=== PATIENT | female | born 1950 | race Caucasian/White ===

== ENCOUNTER 2019-12-17 07:00 | Day surgery (SDC) | payer OTHER, MEDICARE, SELFPAY ==
[~2019-12-17] VITALS: Ht 170.2 cm; Wt 65.8 kg
[2019-12-17] MEDS ORDERED: SIMETHICONE 40 MG/0.6 ML ML PO ONE (07:01)
[2019-12-17] MEDS ORDERED: DIPHENHYDRAMINE INJ 50 MG/ML VIAL IV ONE (07:01)
[2019-12-17] MEDS ORDERED: fentaNYL CITRATE/PF 100 MCG/2 ML AMP IVP ONE (07:01)
[2019-12-17] MEDS ORDERED: MIDAZOLAM HCL 2 MG/2 ML VIAL (VERSED) IVP ONE (07:01)
[2019-12-17] MEDS ORDERED: SIMETHICONE 40 MG/0.6 ML ML ONE (07:33)
[2019-12-17] MEDS ORDERED: fentaNYL CITRATE/PF 100 MCG/2 ML AMP ONE (07:33)
[2019-12-17] MEDS ORDERED: MIDAZOLAM HCL 5 MG/5 ML VIAL ONE (07:34)
[2019-12-17] MEDS ORDERED: ONDANSETRON HCL 4 MG/2 ML VIAL ONE (08:33)
[2019-12-17] MEDS ORDERED: DIPHENHYDRAMINE INJ 50 MG/ML VIAL ONE (08:45)
[2019-12-17 12:13] VITALS: BP_SYST 120
== END 2019-12-17 09:24 | disposition still patient (30) ==
LOC: SDS 07:00 → SMU 07:01 → SDS 09:24
PROVIDERS: ATTEND Internal Medicine
DX: R10.13 Epigastric pain (principal); K29.50 Unspecified chronic gastritis without bleeding; K59.00 Constipation, unspecified; Z85.850 Personal history of malignant neoplasm of thyroid; Z98.890 Other specified postprocedural states; Z90.49 Acquired absence of other specified parts of digestive tract; Z20.828 Contact with and (suspected) exposure to other viral communicable diseases
CPT/HCPCS: 36415; 43239; 87081; 88305; 88312; 88313; 99152; G0378; J1200; J2250; J2405; J3010; J3465; U0003